=== PATIENT | female | born 1990 | race Caucasian/White ===

== ENCOUNTER 2022-11-11 08:25 | Outpatient (CLI) | payer OTHER | END 2022-11-11 08:26 | disposition home or self-care (01) | LOC: RAD 08:25 | PROVIDERS: ATTEND Student in an Organized Health Care Education/Training Program | DX: R76.8 Other specified abnormal immunological findings in serum (principal) | CPT/HCPCS: 71046 ==

== ENCOUNTER 2023-05-14 08:35 | Outpatient (CLI) | payer OTHER | END 2023-05-14 08:36 | disposition home or self-care (01) | LOC: ULT 08:35 | PROVIDERS: ATTEND Family Medicine | DX: E04.1 Nontoxic single thyroid nodule (principal) | CPT/HCPCS: 76536 ==

== ENCOUNTER 2025-05-03 10:21 | Outpatient (CLI) | payer BC | END 2025-05-03 10:22 | disposition home or self-care (01) | LOC: BICULT 10:21 | PROVIDERS: ATTEND Family Medicine | DX: E04.1 Nontoxic single thyroid nodule (principal) | CPT/HCPCS: 76536 ==